=== PATIENT | male | born 1955 | race Caucasian/White ===

== ENCOUNTER 2020-06-16 10:29 | Day surgery (SDC) | payer MEDICARE ==
[~2020-06-16] VITALS: Ht 170.2 cm; Wt 95.0 kg
--- NOTE | ~2020-06-16 | HEMODYNAMI ---
PATIENT:CHAKA PEREZ MEDICAL RECORD: [id number] : 59 LOCATION:[facility] ADMISSION DATE: 06/16/20 Generatedon:06/16/202013:30 Patient name: CHAKA PEREZ Patient #: [id number] SSN: D OB: 1955 Date of study: 06/16/2020 Page: Of Hemodynamic Procedure Report Patient Data Patient Demographics Procedure consent was obtained First Name: CHAKA Gender: Male Last Name: CHRIS : 1955 Patient #: [id number] Age: 65 year(s) Race: Additional ID: [id number] Contact details [address]: [address] [place] [address] State: [place] City: [place] Zip code: [address] Past Medical History Allergies Allergen Reaction Date Comments Reported Other allergy 06/16/2020 IODINATED CONTRAST MEDIA/SULFA Admission Admission Data Admission Date: 06/16/2020 Admission Time: 10:29 Arrival Date: 06/16/2020 Arrival Time: 0:00 Height (in.): 66.93 BSA: 2.06 (m2) Height (cm.): 170 BMI: 32.87 (kg/m2) Weight (lbs.): 209.44 Weight (kg.): 95 Lab Results Lab Result Date: 06/16/2020 Lab Result Time: 0:00 Biochemistry Name Units Result Min Max BUN mg/dl 41 --(----)-* 7 18 Creatinine mg/dl 2 --(----)-* 0.6 1.3 eGFR ml/min 36 *-(----)-- 90 120 NONAFRICAN CBC Name Units Result Min Max Hematocrit % 31.2 *-(----)-- 42 54 Hemoglobin g/dl 10 *-(----)-- 13.5 17.5 Procedure Procedure Types Cath Procedure Diagnostic Procedure KIRILL Procedure Description Procedure Date Procedure Date: 06/16/2020 Procedure Start Time: 12:50 Procedure Staff Name Function Joseluis Warner MD Performing Physician Robbie Davenport [facility] Additional personnel Alejandra Fuentes RT Monitor Ofe Aliya RT Monitor Aurora Mccabe Neon Molder Faviola Hernandez RN Nurse Procedure Data Procedure Complications No complications Procedure Medications Medication Administration Route Dosage 0.9% NaCl I.V. 100 ml/hr Oxygen etCO2 Nasal cannula 2 l/min Hurricaine Warren P.O. 2 Sprays Refer to Anesthesia Notes for Sedation Medications Hemodynamics Rest BSA: 2.06 (m2) HGB: 10 (g/dl) O2 Consumption: Estimated: 248.13 (ml/min) O2 Cons umption indexed: Estimated:120.45 (ml/min/m) Heart Rate: 79 (bpm) Snapshots Pre Cath Intra NCS Post Cath Vital Signs Time Heart Resp SPO2 etCO2 NIBP (mmHg) Rhythm Pain Sedation Rate (ipm) (%) (mmHg) Status Level (bpm) 13:08:10 77 10 100 29.2 153/92(132) NSR 0 (11) 10(A) , No pain 13:12:41 73 11 100 22.4 149/84(125) NSR 0 (11) 10(A) , No pain 13:17:40 74 15 100 28.4 Measuring NSR 0 (11) 10(A) , No pain 13:18:29 83 9 100 0 72/52(62) NSR 0 (11) 3(A) , No pain 13:23:28 84 24 98 32.2 Measuring NSR 0 (11) 3(A) , No pain 13:24:29 85 16 97 0 147/92(116) NSR 0 (11) 3(A) , No pain 13:27:48 81 18 95 16.4 136/103(107) NSR 0 (11) 3(A) , No pain Medications Time Medication Route Dose Verified Delivered Reason Notes Effecti veness by by 13:02:13 0.9% NaCl I.V. 100 Joseluis Salmeron used for ml/hr St Rob Hernandez procedure MD MUNOZ 13:03:03 Oxygen etCO2 2 Joseluis Salmeron used for Nasal l/min St Rob Hernandez procedure cannula MD MUNOZ 13:03:13 Hurricaine P[address]O. 2 Joseluis Salmeron for local Warren Sprays St Rob Hernandez anesthetic MD MUNOZ 13:03:20 Refer to Joseluis Huggins for Anesthesia [facility] sedation Notes for MD SANCHEZ Sedation Medications Procedure Log Time Note 12:51:09 Informed consent obtained and on chart 12:52:19 Time tracking: Regular hours (M-F 7:00 - 5:00) 12:52:26 Procedure Status KIRILL. 12:52:40 Plan of Care:Hemodynamics will remain stable., Cardiac rhythm will remain stable., Comfort level will be maintained., Respiratory function will remain adequate., Patient/ family verbilizes understanding of procedure., Procedure tolerated without complication., Recovers from procedure without complications.. 12:53:28 Alejandra Fuentes RT(R) sent for patient. Start room use. 12:54:15 Aurora Mccabe Director Investor Relations present for KIRILL. 12:56:09 Lab Result : eGFR NONAFRICAN 36 ml/min 12:56:09 Lab Result : Hemoglobin 10 g/dl 12:56:09 Lab Result : BUN 41 mg/dl 12:56:09 Lab Result : Creatinine 2 mg/dl 12:56:09 Lab Result : Hematocrit 31.2 % 12:56:32 Arrival Date: 06/16/2020 12:00:00 AM 12:56:36 Patient Height : 66.93 inches 12:56:41 Patient Weight : 209.44 lbs 12:57:31 Patient allergic to Other allergyIODINATED CONTRAST MEDIA/SULFA 12:57:38 Is the patient allergic to Iodine/contrast media? No. 12:58:10 Patient arrived from Pre/Post Procedure Room to CCL 1. Patient remains on bed/stretcher for procedure. 12:58:20 Warm blankets applied, and sonya hugger turned on for patient comfort. 12:58:21 Correct patient and procedure confirmed by team. 12:58:22 ECG and BP/O2 sat monitors applied to patient. 12:58:41 H&P Date Dictated: 06/16/2020 H&P Addendum completed by physician on day of procedure. (MUST COMPLETE FOR ALL OUTPATIENTS), New H&P dictated by physician.. 12:58:46 Pre-procedure instructions explained to patient. 12:58:48 Pre-op teaching completed and patient verbalized understanding. 12:58:55 Family in patients room. 12:58:58 Patient NPO since Midnight. 12:59:04 Was the patient premedicated? Yes 12:59:24 Snore? Yes 12:59:29 Is patient on blood thinner?No 12:59:35 Patient diabetic? No. 12:59:38 - 12:59:38 ----Pre-sedation anethsthesia assessment.---- 12:59:43 Previous problem with sedation/anesthesia? No ? 12:59:47 Sleep apnea? No 12:59:50 Deviated septum? Unknown 12:59:53 Opens mouth fully? Yes 12:59:56 Sticks out tongue? Yes 13:00:00 Airway obstruction? No ? 13:00:06 Dentures? No ? 13:00:26 Robbie Davenport Jr, CRNA present and monitoring patient for TIVA. 13:01:34 IV patent on arrival in left antecubital with 0.9% NaCl at [facility]. 13:01:39 Lab results completed and on chart. 13:02:13 0.9% NaCl 100 ml/hr I.V. was administered by Faviola Hernandez RN; used for procedure; Verbal order read back and verified. 13:03:03 Oxygen 2 l/min etCO2 Nasal cannula was administered by Faviola Hernandez RN ; used for procedure; Verbal order read back and verified. 13:03:13 Hurricaine Warren 2 Sprays P.O. was administered by Faviola Hernandez RN; fo r local anesthetic; Verbal order read back and verified. 13:03:20 Refer to Anesthesia Notes for Sedation Medications was administered by Joseluis Warner MD; for sedation; Verbal order read back and verified. 13:06:45 Vital chart was started 13:06:47 Baseline sample Acquired. 13:08:16 Rhythm: sinus rhythm 13:08:20 Full Disclosure recording started 13:16:07 Physician arrived 13:16:08 --------ALL STOP TIME OUT------ 13:16:09 Final Timeout: patient, procedure, and site verified with staff and physician. All members of the team are in agreement. 13:16:20 Fire Safety Assessment: A--An alcohol-based skin anteseptic being used preoperatively., B--The operative or invasive procedure is being performed above the xiphoid process or in the oropharynx., C--Open oxygen or nitrous oxide is being used., E--There are other possible contributors. 13:16:26 Physical assessment completed. ASA score P 2 - A patient with mild systemic disease as per Joseluis Warner MD. 13:16:42 Sedation plan: TIVA Medication:Propofol 13:17:16 KIRILL 13:17:18 KIRILL started. 13:24:03 KIRILL completed. 13:25:42 Procedure ended.(Physican Out) 13:25:56 Post-procedure physical assessment completed. ASA score P 2 - A patient with mild systemic disease as per Joseluis Warner MD. 13:26:01 Post procedure rhythm: unchanged. 13:26:09 Post procedure instruction explained to patient.Patient verbalizes understanding. 13:26:10 Patient needs reinforcement of post procedure teaching. 13:26:20 Procedure and supply charges have been captured, reviewed, submitted an d are correct. 13:26:31 Procedure Complication : No complications 13:27:22 KIRILL Findings: vegetation noted (see operative note) 13:27:32 Operative report dictated upon procedure completion. 13:27:33 See physician's report for complete and final results. 13:27:48 Report given to Pre/Post Procedure Room. 13:28:11 Vital chart was stopped 13:28:26 Patient transfered to Pre/Post Procedure Room with Stretcher. 13:28:31 End room use (Document Last) Signature Audit [place] Stage Time Signature Unsigned Intra-Procedure 06/16/2020 Ofe 1:28:52 PM Aliya RT(R) (CV) Intra-Procedure 06/16/2020 Faviola Hernandez 1:29:33 PM RN Intra-Procedure 06/16/2020 Joseluis Dos Santos 1:30:06 PM Rob SANCHEZ [facility] [address] [place] [address]
[2020-06-16 11:21] LABS: BASOPHILS 0.3 % (0-2); EOSINOPHILS 9.4 % (0-7); HEMATOCRIT 31.2 % (42.0-54.0); IMMATURE GRANULOCYTES 0.3 % (0-5); LYMPHOCYTES 17.5 % (15-50); MCH 31.7 pg (26.0-34.0); MCHC 32.1 g/dL (31.0-37.0); MONOCYTES 8.9 % (2-11); NEUTROPHILS 63.6 % (40-80); PLATELET COUNT 137 10x3/uL (130-400); RBC 3.15 10x6/uL (4.20-6.10); RDW 15.3 % (11.5-14.5); WBC 3.7 10x3/uL (4.8-10.8)
[2020-06-16 11:22] VITALS: BP 138/65; Ht 170.2 cm; Wt 95.0 kg
[2020-06-16] MEDS ORDERED: KENALOG 0.1 % 115 GM TOPICAL (11:24)
[2020-06-16] MEDS ORDERED: WELLBUTRIN SR150 MG PO (11:25)
[2020-06-16] MEDS ORDERED: K-DUR20 MEQ PO (11:25)
[2020-06-16] MEDS ORDERED: NORVASC5 MG PO (11:25)
[2020-06-16] MEDS ORDERED: LISINOPRIL20 MG PO (11:26)
[2020-06-16] MEDS ORDERED: LASIX40 MG PO (11:26)
[2020-06-16] MEDS ORDERED: TIVICAY50 MG PO (11:32)
[2020-06-16] MEDS ORDERED: PREZCOBIX (11:33)
[2020-06-16] MEDS ORDERED: DAPSONE100 MG PO (11:33)
[2020-06-16 11:34] LABS: ANION GAP 8.8 mmol/L (8-16); CALCIUM 8.9 mg/dL (8.5-10.1); CARBON DIOXIDE 27.9 mmol/L (21.0-32.0); POTASSIUM - SERUM 3.7 mmol/L (3.5-5.1)
--- NOTE | 2020-06-16 13:37 | NUR ---
PT ARRIVED BY STRETCHER. PLACED ON MONITORS. ASSESSMENT COMPLETED. VSS AT THIS TIME. CALL LIGHT WITHIN REACH. PT NPO AT THIS TIME.
--- NOTE | 2020-06-16 13:52 | NUR ---
PT RESTING COMFORTABLY. VSS AT THIS TIME. CALL LIGHT WITHIN REACH. VSS AT THIS TIME.
--- NOTE | 2020-06-16 14:20 | NUR ---
PIV D/C'D WITH CATH TIP INTACT. PT TOLERATED WELL. DR. BAKER ROUNDED AND SPOKE WITH PT. DISCUSSED DISCHARGE INSTRUCTIONS WITH PT. HE VOICED UNDERSTANDING. PT INSTRUCTED TO GET UP AND DRESSED AT THIS TIME.
--- NOTE | 2020-06-16 14:25 | NUR ---
PT AMBULATED TO RESTROOM. VOIDED WITHOUT DIFFICULTY. STEADY GAIT NOTED.
--- NOTE | 2020-06-16 14:30 | NUR ---
PT TAKEND DOWN TO VEHICLE BY WHEELCHAIR. NO S/S OF DISTRESS NOTED. ALL BELONGINGS AND PAPERWORK IN HAND.
--- NOTE | 2020-06-17 08:18 | TEE ---
PATIENT:CHAKA PEREZ MEDICAL RECORD: [id number] LOCATION:D[facility] AGE OF PATIENT: 65 ADMISSION DATE: 06/16/20 SEX: M REFERRING PHYSICIAN: INTERPRETING PHYSICIAN: INES BAKER MD TRANSESOPHAGEAL ECHOCARDIOGRAM Date: 06/16/20 KIRILL CHARGE Y INDICATIONS: MR PREMEDICATIONS: PATIENT'S RESPONSE PROCEDURE DOPPLER MEASUREMENTS: LVIT LA PA RA LVOT RVOT Asc. Ao AV Gradient Peak AV Mean AV Area MV Gradient Peak MV Mean MV Area INTERPRETATION: Doppler: 2-D: COLOR FLOW DOPPLER NORMAL SALINE STUDY: MISCELLANOUS: DIAGNOSIS: PLAN: Track Inspector:3 Dr. Epperson Budget Coordinator: Marianne MARTÍNEZ COMMENTS: DATE OF SERVICE: 06/16/2020 PROCEDURE: Transesophageal Note DESCRIPTION OF PROCEDURE: After general sedation via TIVA via anesthesia, transesophageal Omniplane probe was placed in to the esophagus and proximal stomach without difficulty. FINDINGS: No LVH. LV internal dimensions are normal. Wall motion is normal. TRANSESOPHAGEAL ECHOCARDIOGRAM REPORT [id number] [place] PEREZ EF is greater than or equal to 55%. Aortic valve is well visualized, it is tricuspid with good valve excursion. Trace AI. Left atrium appears normal. Left atrium appendage is well visualized with good contractility. Mitral valve grossly appears normal. There is moderate MR by color flow imaging; however, there is no evidence of prolapse. There is no evidence of ruptured chordae. Right-sided chambers were grossly normal. Mild TR. During the procedure, the patient was monitored continuously with pulse oximetry and telemetry, noninvasive blood pressure monitoring. TRANSINT:[id number] Voice Confirmation ID: [id number] DOCUMENT ID: [id number] at [id number] CC: [id number] DICTATION DATE: 06/16/20 1345 SLEEVE BOTTOM FELLER: 06/17/20 0248 [facility] 06/16/20 [address] [place] [address]
== END 2020-06-16 14:30 | disposition home or self-care (01) ==
LOC: D.CATH 10:29
PROVIDERS: ATTEND Internal Medicine Interventional Cardiology
DX: I34.0 Nonrheumatic mitral (valve) insufficiency (principal); I10 Essential (primary) hypertension